=== PATIENT | male | born 1970 | race Hispanic/Latino ===

== ENCOUNTER 2018-12-30 13:14 | Emergency (ER) | payer SELFPAY ==
--- NOTE | 2018-12-30 14:25 | RAD ---
PORTABLE CHEST: Date: 12/30/18 PROVIDED CLINICAL HISTORY: Shortness of breath. FINDINGS: Comparison with 03/06/12. Cardiac and mediastinal silhouette is within normal limits. Lungs appear clear. No pleural fluid or p neumothorax apparent. IMPRESSION: No evidence for acute cardiopulmonary process. POS: [facility]
== END 2018-12-30 16:10 | disposition home or self-care (01) ==
LOC: ERS 13:14
DX: B34.9 Viral infection, unspecified (principal)
CPT/HCPCS: 71045; 87804; 94640; J7620

== ENCOUNTER 2019-12-12 11:47 | Emergency (ER) | payer SELFPAY | END 2019-12-12 13:21 | disposition home or self-care (01) | LOC: ERS 11:47 | DX: J01.90 Acute sinusitis, unspecified (principal); H92.01 Otalgia, right ear; E11.9 Type 2 diabetes mellitus without complications | CPT/HCPCS: 99283 ==

== ENCOUNTER 2022-04-16 00:06 | Emergency (ER) | payer SELFPAY | END 2022-04-16 02:18 | disposition home or self-care (01) | LOC: ERS 00:06 | DX: S50.362A Insect bite (nonvenomous) of left elbow, initial encounter (principal); J45.909 Unspecified asthma, uncomplicated; W57.XXXA Bitten or stung by nonvenomous insect and other nonvenomous arthropods, initial encounter; Z79.899 Other long term (current) drug therapy ==

== ENCOUNTER 2022-10-17 11:14 | Emergency (ER) | payer SELFPAY ==
[2022-10-17] MEDS ORDERED: methylPREDNISolone Sod Succ/PF 125 MG/2 ML VIAL ONE (12:08)
[2022-10-17 12:10] LABS: #Eosinphils 0.4 thou/uL (0.0-0.7); #Monocytes 0.8 thou/uL (0.11-0.59); #Neutrophils 6.6 thou/uL (1.40-6.50); %Basophils 0.3 % (0.0-1.0); %Eosinophils 4.4 % (0.0-10.0); %Lymphocytes 10.9 % (21.0-51.0); %Monocytes 9.5 % (0.0-10.0); %Neutrophils 74.9 % (42.0-75.0); Hemoglobin 16.1 g/dL (14.0-18.0); Mean Corpuscular HGB CONC 34.8 g/dL (32.0-36.0); Mean Corpuscular Hemoglobin 32.9 pg (27.0-31.0); Mean Corpuscular Volume 94.3 fl (78.0-98.0); Mean Platelet Volume 8.5 fL (7.4-10.4); Platelet Count 247 10x3/uL (130-400); Red Blood Cell (RBC) Count 4.91 mill/uL (4.70-6.10); White Blood Cell (WBC) Count 8.7 10x3/uL (4.8-10.8)
[2022-10-17] MEDS ORDERED: Albuterol 200 PUFF (6.7GM INHALER) ONE (12:17)
[2022-10-17 12:27] LABS: ALT (SGPT) 18 U/L (8-55); AST (SGOT) 18 U/L (5-34); Albumin 4.5 g/dL (3.5-5.0); Alkaline Phosphatase 112 U/L (40-110); Anion Gap 11 mmol/L (10-20); BUN (Urea Nitrogen) 11 mg/dL (8.4-25.7); Bilirubin, Total 0.8 mg/dL (0.2-1.2); Calc. Creatinine Clearance 0 mL/min (70-130); Calcium 9.3 mg/dL (7.8-10.44); Carbon Dioxide 24 mmol/L (22-29); Chloride 105 mmol/L (98-107); Estimated GFR 97; Globulin 3.4 g/dL (2.4-3.5); Glucose 119 mg/dL (70-105); Lipase 7 U/L (8-78); Potassium 3.9 mmol/L (3.5-5.1); Protein, Total 7.9 g/dL (6.0-8.3); Sodium 136 mmol/L (136-145)
[2022-10-17 12:55] LABS: SARS-CoV-2 NAA Rapid Test Not Detected (NotDetected)
== END 2022-10-17 13:22 | disposition home or self-care (01) ==
LOC: ERS 11:14
DX: J45.901 Unspecified asthma with (acute) exacerbation (principal); Z20.822 Contact with and (suspected) exposure to COVID-19
CPT/HCPCS: 71045; 80053; 83690; 84484; 85025; 93005; 94640; 96374; J2930

== ENCOUNTER 2023-08-25 15:54 | Emergency (ER) | payer SELFPAY ==
[2023-08-25] MEDS ORDERED: Ipratropium Bromide 2.5 ml Neb ONE (16:14)
[2023-08-25] MEDS ORDERED: Magnesium 2 GM/50 ML BAG (IN WATER) ONE (16:26)
[2023-08-25] MEDS ORDERED: predniSONE 20 MG TAB ONE (16:29)
[2023-08-25 16:43] LABS: #Basophils 0.1 thou/uL (0.0-0.2); #Eosinphils 0.7 thou/uL (0.0-0.7); #Monocytes 0.9 thou/uL (0.11-0.59); #Neutrophils 6.9 thou/uL (1.40-6.50); %Basophils 0.7 % (0.0-1.0); %Eosinophils 6.7 % (0.0-10.0); %Lymphocytes 13.1 % (21.0-51.0); %Neutrophils 70.2 % (42.0-75.0); Hematocrit 46.9 % (42.0-52.0); Hemoglobin 16.4 g/dL (14.0-18.0); Mean Corpuscular Hemoglobin 31.7 pg (27.0-31.0); Mean Corpuscular Volume 90.7 fl (78.0-98.0); Mean Platelet Volume 10.9 fL (7.4-10.4); Platelet Count 232 10x3/uL (130-400); RBC Distribution Width 13.5 % (11.5-14.5); Red Blood Cell (RBC) Count 5.17 mill/uL (4.70-6.10); White Blood Cell (WBC) Count 9.9 10x3/uL (4.8-10.8)
[2023-08-25 17:05] LABS: ALT (SGPT) 25 U/L (8-55); AST (SGOT) 18 U/L (5-34); Albumin 5.1 g/dL (3.5-5.0); Alkaline Phosphatase 117 U/L (40-110); Anion Gap 14 mmol/L (10-20); BUN (Urea Nitrogen) 10 mg/dL (8.4-25.7); Bilirubin, Total 0.5 mg/dL (0.2-1.2); Calc. Creatinine Clearance 0 mL/min (70-130); Calcium 9.8 mg/dL (7.8-10.44); Carbon Dioxide 25 mmol/L (22-29); Chloride 103 mmol/L (98-107); Estimated GFR 80; Globulin 3.2 g/dL (2.4-3.5); Glucose 94 mg/dL (70-105); Potassium 3.9 mmol/L (3.5-5.1); Protein, Total 8.3 g/dL (6.0-8.3); Sodium 138 mmol/L (136-145)
[2023-08-25 17:10] LABS: Troponin I Less than 0.010 ng/mL (< 0.028)
== END 2023-08-25 17:23 | disposition home or self-care (01) ==
LOC: ERS 15:54
DX: J45.901 Unspecified asthma with (acute) exacerbation (principal)
CPT/HCPCS: 71045; 80053; 84484; 85025; 93005; 96365; J3475; J7512

== ENCOUNTER 2023-12-14 15:31 | Emergency (ER) | payer SELFPAY ==
[2023-12-14] MEDS ORDERED: Ibuprofen 800 MG TAB ONE (16:44)
[2023-12-14] MEDS ORDERED: predniSONE 20 MG TAB ONE (16:44)
[2023-12-14] MEDS ORDERED: Ipratropium/Albuterol 3 ML NEB ONE (17:07)
[2023-12-14 17:15] LABS: SARS-CoV-2 NAA Rapid Test Not Detected (NotDetected)
== END 2023-12-14 18:00 | disposition home or self-care (01) ==
LOC: ERS 15:31
DX: J45.909 Unspecified asthma, uncomplicated (principal)
CPT/HCPCS: 71045; 94640; J7512; J7620

== ENCOUNTER 2024-08-14 13:03 | Emergency (ER) | payer SELFPAY ==
[2024-08-14] MEDS ORDERED: predniSONE 20 MG TAB ONE (14:10)
[2024-08-14] MEDS ORDERED: Aspirin Chewable 81 MG TAB ONE (14:10)
[2024-08-14] MEDS ORDERED: Ipratropium/Albuterol 3 ML NEB ONE (14:10)
[2024-08-14 14:17] LABS: #Basophils 0.11 10x3/uL (0.0-0.2); %Basophils 1.3 % (0.0-1.0); %Eosinophils 5.8 % (0.0-10.0); %Neutrophils 78.5 % (42.0-75.0); Hematocrit 48.4 % (42.0-52.0); Hemoglobin 16.8 g/dL (14.0-18.0); Mean Corpuscular HGB CONC 34.7 g/dL (32.0-36.0); Mean Corpuscular Hemoglobin 31.5 pg (27.0-31.0); Mean Corpuscular Volume 90.6 fL (78.0-98.0); Mean Platelet Volume 10.9 fL (7.4-10.4); Platelet Count 233 10x3/uL (130-400); RBC Distribution Width 13.4 % (11.5-14.5); Red Blood Cell (RBC) Count 5.34 mill/uL (4.70-6.10)
[2024-08-14 14:40] LABS: Anion Gap 13 mmol/L (10-20); BUN (Urea Nitrogen) 11 mg/dL (8.4-25.7); Calc. Creatinine Clearance 0 mL/min (70-130); Calcium 9.7 mg/dL (7.8-10.44); Carbon Dioxide 21 mmol/L (22-29); Chloride 108 mmol/L (98-107); Estimated GFR 102; Glucose 105 mg/dL (70-105); Potassium 4.1 mmol/L (3.5-5.1); Sodium 138 mmol/L (136-145)
[2024-08-14 14:45] LABS: Troponin I Less than 0.010 ng/mL (< 0.028)
== END 2024-08-14 15:14 | disposition home or self-care (01) ==
LOC: ERS 13:03
DX: J45.909 Unspecified asthma, uncomplicated (principal)
CPT/HCPCS: 71046; 80048; 84484; 85025; 93005; 94640; J7512; J7620

== ENCOUNTER 2024-09-13 12:35 | Inpatient (IN) | payer SELFPAY ==
[2024-09-13] MEDS ORDERED: Ipratropium/Albuterol 3 ML NEB ONE ×2 (13:06→14:38)
[2024-09-13] MEDS ORDERED: Magnesium 2 GM/50 ML BAG (IN WATER) ONE (13:23)
[2024-09-13] MEDS ORDERED: methylPREDNISolone Sod Succ/PF 125 MG/2 ML VIAL ONE (13:24)
[2024-09-13 13:41] LABS: #Basophils 0.11 10x3/uL (0.0-0.2); %Basophils 1.5 % (0.0-1.0); %Lymphocytes 16.4 % (21.0-51.0); %Monocytes 9.5 % (0.0-10.0); %Neutrophils 54.3 % (42.0-75.0); Hematocrit 48.8 % (42.0-52.0); Hemoglobin 17.2 g/dL (14.0-18.0); Mean Corpuscular HGB CONC 35.2 g/dL (32.0-36.0); Mean Corpuscular Hemoglobin 31.2 pg (27.0-31.0); Mean Corpuscular Volume 88.4 fL (78.0-98.0); Mean Platelet Volume 10.5 fL (7.4-10.4); Platelet Count 293 10x3/uL (130-400); RBC Distribution Width 13.2 % (11.5-14.5); Red Blood Cell (RBC) Count 5.52 mill/uL (4.70-6.10)
[2024-09-13 14:08] LABS: ALT (SGPT) 21 U/L (8-55); AST (SGOT) 19 U/L (5-34); Albumin 4.1 g/dL (3.5-5.0); Alkaline Phosphatase 125 U/L (40-110); Anion Gap 16 mmol/L (10-20); BUN (Urea Nitrogen) 11 mg/dL (8.4-25.7); Bilirubin, Total 0.7 mg/dL (0.2-1.2); Calc. Creatinine Clearance 0 mL/min (70-130); Calcium 9.4 mg/dL (7.8-10.44); Carbon Dioxide 21 mmol/L (22-29); Chloride 107 mmol/L (98-107); Estimated GFR 96; Globulin 3.8 g/dL (2.4-3.5); Glucose 120 mg/dL (70-105); Magnesium 2.3 mg/dL (1.6-2.6); Potassium 3.8 mmol/L (3.5-5.1); Protein, Total 7.9 g/dL (6.0-8.3); Sodium 140 mmol/L (136-145)
[2024-09-13 14:12] LABS: Troponin I Less than 0.010 ng/mL (< 0.028)
[2024-09-13] MEDS ORDERED: cefTRIAXone (ROCEPHIN) 2 GM VIAL ONE (14:12)
[2024-09-13] MEDS ORDERED: Sodium Chloride 0.9% 100 ML ONE (14:12)
[2024-09-13] MEDS ORDERED: Azithromycin 500 MG VIAL ONE (14:12)
[2024-09-13] MEDS ORDERED: Albuterol 2.5 MG (3 mL) NEB ONE (14:45)
[2024-09-13] MEDS ORDERED: Senokot S 8.6-50 MG TAB PO PRN (15:19)
[2024-09-13] MEDS ORDERED: Ondansetron PF 4 MG/2 ML Vial IVP PRN (15:19)
[2024-09-13] MEDS ORDERED: Guaifenesin DM 100-10/5 ML UDCUP PO PRN (15:19)
[2024-09-13] MEDS ORDERED: Acetaminophen 325 MG TAB PO PRN (15:19)
[2024-09-13] MEDS ORDERED: Albuterol 2.5 MG (3 mL) NEB NEB PRN (15:22)
[2024-09-13] MEDS ORDERED: methylPREDNISolone Sod Succ/PF 125 MG/2 ML VIAL IVP SCH (18:00)
[2024-09-13 18:30] VITALS: BMI 30.8
[2024-09-13] MEDS: methylPREDNISolone Sod Succ 40 MG VIAL IVP SCH (18:48)
[2024-09-13] MEDS: Ipratropium/Albuterol 3 ML NEB NEB SCH (19:06)
[2024-09-14 04:31] LABS: #Basophils Less than 0.03 10x3/uL (0.0-0.2); #Eosinophils Less than 0.03 10x3/uL (0.0-0.7); %Basophils 0.2 % (0.0-1.0); %Lymphocytes 5.5 % (21.0-51.0); %Monocytes 1.2 % (0.0-10.0); %Neutrophils 92.7 % (42.0-75.0); Hemoglobin 15.6 g/dL (14.0-18.0); Mean Corpuscular HGB CONC 34.7 g/dL (32.0-36.0); Mean Corpuscular Hemoglobin 31.1 pg (27.0-31.0); Mean Corpuscular Volume 89.6 fL (78.0-98.0); Platelet Count 303 10x3/uL (130-400); RBC Distribution Width 13.6 % (11.5-14.5); Red Blood Cell (RBC) Count 5.02 mill/uL (4.70-6.10)
[2024-09-14 04:59] LABS: Anion Gap 16 mmol/L (10-20); BUN (Urea Nitrogen) 14 mg/dL (8.4-25.7); Calc. Creatinine Clearance 89 mL/min (70-130); Calcium 9.1 mg/dL (7.8-10.44); Carbon Dioxide 18 mmol/L (22-29); Chloride 104 mmol/L (98-107); Estimated GFR 72; Glucose 262 mg/dL (70-105); Sodium 134 mmol/L (136-145)
[2024-09-14] MEDS ORDERED: Dextrose 5% in Water 1,000 ML IV PRN (08:27)
[2024-09-14] MEDS ORDERED: Dextrose 50% Abboject 50 ML SYRINGE SLOW IVP PRN (08:27)
[2024-09-14] MEDS ORDERED: Glucagon 1 MG/ML KIT IM PRN (08:27)
[2024-09-14 08:59] LABS: Hemoglobin A1c 5.4 % (4.0-6.0)
[2024-09-14] MEDS: Benzonatate 100 MG CAP PO SCH (09:08)
[2024-09-14] MEDS: Insulin Lispro 100 UNIT/ML 10 ML VIAL SC PRN (11:28)
[2024-09-14 12:05] VITALS: BP 142/79; TEMP 97.4
[2024-09-14] MEDS ORDERED: Budesonide 0.5 MG/2 ML NEB INH SCH (18:30)
[2024-09-14] MEDS ORDERED: Montelukast Sodium 10 mg Tablet PO SCH (21:00)
[2024-09-15] MEDS ORDERED: FLU (Fluarix Triv) TS24-25(6MOS UP)/PF 45 MCG/0.5 ML Syringe IM ONE (09:00)
== END 2024-09-14 14:20 | disposition home or self-care (01) | DRG 202 ==
LOC: ERS 12:35 → 2NO 14:55
PROVIDERS: ADMIT Internal Medicine; ATTEND Hospitalist
DX: J45.51 Severe persistent asthma with (acute) exacerbation (principal); J44.1 Chronic obstructive pulmonary disease with (acute) exacerbation; I10 Essential (primary) hypertension; Z98.890 Other specified postprocedural states; Z83.3 Family history of diabetes mellitus; Z82.49 Family history of ischemic heart disease and other diseases of the circulatory system; E66.9 Obesity, unspecified; Z68.30 Body mass index [BMI] 30.0-30.9, adult
CPT/HCPCS: 36415; 36416; 71045; 80048; 80053; 83036; 83735; 83880; 84484; 85025; 87040; 87428; 93005; 94640; 94644; 96374; 96375; J0456; J0696; J2919; J3475; J7611; J7620

== ENCOUNTER 2024-10-19 21:48 | Emergency (ER) | payer SELFPAY ==
[2024-10-19] MEDS ORDERED: Ipratropium/Albuterol 3 ML NEB ONE (23:16)
[2024-10-19] MEDS ORDERED: Albuterol 2.5 MG (3 mL) NEB ONE (23:16)
[2024-10-19] MEDS ORDERED: Albuterol 2.5 MG (0.5 mL) NEB ONE (23:16)
[2024-10-20] MEDS ORDERED: Dexamethasone 10 MG/ML VIAL ONE (00:16)
[2024-10-20] MEDS ORDERED: Albuterol 2.5 MG (0.5 mL) NEB ONE (01:24)
[2024-10-20] MEDS ORDERED: Ipratropium/Albuterol 3 ML NEB ONE (01:24)
[2024-10-20] MEDS ORDERED: Albuterol 2.5 MG (3 mL) NEB ONE (01:24)
== END 2024-10-20 03:30 | disposition home or self-care (01) ==
LOC: ERS 21:48
DX: J45.901 Unspecified asthma with (acute) exacerbation (principal)
CPT/HCPCS: 71045; 94644; J1100; J7611; J7620

== ENCOUNTER 2024-11-28 05:30 | Emergency (ER) | payer SELFPAY ==
[2024-11-28] MEDS ORDERED: Ipratropium/Albuterol 3 ML NEB ONE (05:38)
[2024-11-28] MEDS ORDERED: Albuterol 2.5 MG (0.5 mL) NEB ONE ×3 (05:39→06:28)
[2024-11-28] MEDS ORDERED: Ipratropium Bromide 2.5 ml Neb ONE ×2 (05:39→06:28)
[2024-11-28] MEDS ORDERED: predniSONE 20 MG TAB ONE (06:28)
== END 2024-11-28 07:45 | disposition home or self-care (01) ==
LOC: ERS 05:30
DX: J45.901 Unspecified asthma with (acute) exacerbation (principal); Z55.6 Problems related to health literacy
CPT/HCPCS: J7512; J7611; J7620; J7644

== ENCOUNTER 2024-12-19 17:34 | Emergency (ER) | payer SELFPAY ==
[2024-12-19] MEDS ORDERED: Albuterol 2.5 MG (3 mL) NEB ONE ×2 (17:53→19:23)
[2024-12-19] MEDS ORDERED: Ipratropium/Albuterol 3 ML NEB ONE ×2 (17:53→19:23)
[2024-12-19] MEDS ORDERED: Magnesium 2 GM/50 ML BAG (IN WATER) ONE (17:55)
[2024-12-19] MEDS ORDERED: Dexamethasone 10 MG/ML VIAL ONE (17:55)
[2024-12-19 18:01] LABS: #Basophils 0.14 10x3/uL (0.0-0.2); %Basophils 1.1 % (0.0-1.0); %Eosinophils 13.7 % (0.0-10.0); %Lymphocytes 10.9 % (21.0-51.0); %Monocytes 8.4 % (0.0-10.0); %Neutrophils 65.7 % (42.0-75.0); Hematocrit 44.5 % (42.0-52.0); Hemoglobin 15.6 g/dL (14.0-18.0); Mean Corpuscular HGB CONC 35.1 g/dL (32.0-36.0); Mean Corpuscular Hemoglobin 31.1 pg (27.0-31.0); Mean Corpuscular Volume 88.6 fL (78.0-98.0); Mean Platelet Volume 10.8 fL (7.4-10.4); Platelet Count 211 10x3/uL (130-400); RBC Distribution Width 13.3 % (11.5-14.5); Red Blood Cell (RBC) Count 5.02 mill/uL (4.70-6.10)
[2024-12-19 18:22] LABS: ALT (SGPT) 24 U/L (Less than 45); AST (SGOT) 23 U/L (11-34); Albumin 4.2 g/dL (3.1-4.5); Alkaline Phosphatase 100 U/L (40-110); Anion Gap 14 mmol/L (10-20); BUN (Urea Nitrogen) 11 mg/dL (8.4-25.7); Bilirubin, Total 0.6 mg/dL (0.3-1.2); Calc. Creatinine Clearance 0 mL/min (70-130); Calcium 9.2 mg/dL (7.8-10.44); Carbon Dioxide 22 mmol/L (22-29); Chloride 111 mmol/L (98-107); Estimated GFR 83; Glucose 115 mg/dL (70-105); Potassium 3.8 mmol/L (3.5-5.1); Protein, Total 7.2 g/dL (6.0-8.3); Sodium 143 mmol/L (136-145)
[2024-12-19 18:25] LABS: Troponin I Less than 0.010 ng/mL (< 0.028)
== END 2024-12-19 20:00 | disposition home or self-care (01) ==
LOC: ERS 17:34
DX: J45.901 Unspecified asthma with (acute) exacerbation (principal); Z79.51 Long term (current) use of inhaled steroids
CPT/HCPCS: 71045; 80053; 83880; 84484; 85025; 87428; 93005; 94644; 96374; 96375; J1100; J3475; J7611; J7620